=== PATIENT | male | born 1980 | race Caucasian/White ===

== ENCOUNTER → 2016-07-13 | Outpatient (CLI) | payer OTHER ==
[~2016-07-13] VITALS: Ht 177.8 cm; Wt 74.8 kg
[~2016-07-13] MED LIST: SINCALIDE 1.5 MCG in IV NORMAL SALINE 50ML 30 ML IV ONE
--- NOTE | 2016-07-13 10:53 | RAD ---
Indication: Left upper quadrant pain for 3 weeks and elevated bilirubin. Multiplanar multisequence imaging of the abdomen was performed without contrast. MRCP protocol was utilized. The liver is unremarkable. No discrete liver mass is identified. The gallbladder is without stones. No intrahepatic or extrahepatic biliary ductal dilatation is seen. No filling defects are identified to suggest common duct stone. The pancreas and spleen are unremarkable. No adrenal mass is identified. There is a 1.5 cm cyst in the left kidney. There is no ascites. Bowel loops are unremarkable. Impression: Essentially unremarkable MRI of the abdomen without contrast apart from a small left renal cyst. No biliary ductal dilatation is seen. No common duct stone is detected.
--- NOTE | 2016-07-13 12:48 | RAD ---
Indication: Abdominal pain and back pain. The patient was administered 5 mCi technetium 99m Choletec and imaging over the abdomen was performed. In addition, the patient was administered 1.5 mcg of CCK and a gallbladder ejection fraction was calculated. There is homogeneous uptake of activity by the liver with prompt excretion of activity into the common duct and gallbladder. Activity does pass into the small bowel. The gallbladder ejection fraction is normal at 84%. Impression: Normal HIDA scan and gallbladder ejection fraction.
== END | disposition home or self-care (01) ==
LOC: MRI 07:38
PROVIDERS: ATTEND Internal Medicine Gastroenterology
DX: R10.12 Left upper quadrant pain (principal); E80.7 Disorder of bilirubin metabolism, unspecified; M54.9 Dorsalgia, unspecified
CPT/HCPCS: 74181; 78226; 96374; 96375; J2805